=== PATIENT | male | born 1935 | race African-American/Black ===

== ENCOUNTER 2016-06-22 21:37 | Inpatient (IN) | payer MEDICARE ==
[2016-06-19 13:06] LABS: BASOPHILS 0.3 %; BASOPHILS ABSOLUTE 0.02 10/3/uL (0.0-0.16); EOSINOPHILS 4.7 %; EOSINOPHILS ABSOLUTE 0.29 10/3/uL (0.0-0.53); HEMOGLOBIN 12.2 g/dL (13.6-17.8); IMMATURE GRANULOCYTES 0.2 %; IMMATURE GRANULOCYTES ABSOLUTE 0.01 10/3/uL (0.0-0.11); LYMPHOCYTES 22.8 %; LYMPHOCYTES ABSOLUTE 1.41 10/3/uL (0.67-4.30); MEAN CORPUS HGB CONC 34.3 g/dL (32.0-36.0); MEAN CORPUSCULAR HEMOGLOB 31.9 pg (26.0-34.0); MEAN PLATELET VOLUME 11.4 fL (9.2-13.0); MONOCYTES 10.7 %; MONOCYTES ABSOLUTE 0.66 10/3/uL (0.21-1.20); NEUTROPHILS 61.3 %; PLATELET COUNT 134 10/3/uL (150-400); RBC DISTRIBUTION WIDTH 14.9 % (12.0-16.0); RED CELL COUNT 3.83 10/6/uL (4.7-6.1); WHITE BLOOD CELLS 6.2 10/3/uL (4.5-10.5)
[2016-06-19 13:07] LABS: HEMATOCRIT 35.6 % (40.0-51.0); MANUAL DIFF NO %
[2016-06-19 22:06] LABS: ASCORBIC ACID (UR NOT ORDER) NEG (NEG); BILIRUBIN, URINE NEGATIVE (NEG); KETONE, URINE NEGATIVE (NEG)
--- NOTE | ~2016-06-22 | HP ---
History And Physical [address] [place]. [address] NAME: MARILU HERNÁNDEZ JR : 37 STATUS : ADM IN [facility]#: [id number] AGE: 81 ADM/REG DATE : 06/23/16 MR#: [id number] REPORT SERV DATE: 06/25/16 DICTATED BY: NICHOLAS CALLAWAY DATE: 06/25/16 REPORT STATUS : Draft TRANSCRIBED BY: MODL DATE: 06/25/16 DATE OF ADMISSION: 06/23/2016 CHIEF COMPLAINT: Decreased responsiveness, nausea, and vomiting. HISTORY OF PRESENT ILLNESS: This is an 81-year-old male, who is a [employer] participant with a history of prior stroke with aphasia, dysphagia, and gait abnormality. The patient also has hypertension and benign prostatic hypertrophy. He was admitted to the hospital with complaints of nausea, vomiting, decreased p.o. intake, and decreased responsiveness. The patient was seen at the [facility] (in [facility]) by me on 06/18/2016, where he was noted to be not as alert as usual. He was still eating and drinking and interacting and grunting, like he usually does, at that time. Chest x-ray, urine, CBC, CMP were ordered, and he was started on Rocephin as nurses had also reported hematuria and turbid urine the day before. Subsequently, over the weekend, he developed decreased p.o. intake, nausea, and vomiting, and on 06/22/2016 had decreased responsiveness and was brought to the emergency room. He was found to be dehydrated in the ER, and urine was suggestive of infection. He was admitted for further management. Last night, the patient's T-max (maximum temperature) was 99.9 degree Fahrenheit. REVIEW OF SYSTEMS: Detailed review of systems could not be obtained as the patient was lethargic and not responding much to questions. Family was not available, but per [facility] nurse, review of systems was negative, except as mentioned above. PAST MEDICAL HISTORY: Includes: 1. Prior stroke with aphasia and weakness and some dysphagia. 2. Hypertension. 3. Diabetes mellitus, not on medications. 4. Stage 3 chronic kidney disease. 5. GERD. 6. Constipation. 7. Osteoarthritis. 8. History of Schatzki ring, which has been dilated in the past. 9. Esophagitis in the past. 10.Benign prostatic hypertrophy. 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 FAMILY HISTORY: Noncontributory at this time. SOCIAL HISTORY: Patient is currently a resident of [facility] on [address]. No alcohol or tobacco use at this time. No illicit drug use. However, the patient was a smoker in the past. ALLERGIES: LUZ INHIBITORS. History And Physical [address] [address] NAME: MARILU HERNÁNDEZ : 37 STATUS : ADM IN [facility]#: [id number] AGE: 81 ADM/REG DATE : 06/23/16 MR#: [id number] REPORT SERV DATE: 06/25/16 DICTATED BY: NICHOLAS CALLAWAY DATE: 06/25/16 REPORT STATUS : Draft TRANSCRIBED BY: KADY DATE: 06/25/16 MEDICATIONS: Include Protonix 40 mg daily, aspirin, Lipitor, Colace, p.r.n. Dulcolax, DuoNeb p.r.n., hydrochlorothiazide, milk of mag p.r.n., multivitamins, tramadol p.r.n., vitamin D, and Zofran. PHYSICAL EXAMINATION: VITAL SIGNS: Temperature 99.3, pulse 81, respirations 18, and blood pressure 113/62. GENERAL: The patient is lethargic, sleeping in bed; however, he does open his eyes and look around in response to tactile stimuli, not alert enough to eat at this point. NECK: No jugular venous distention. CHEST: No tenderness to palpation. CARDIAC: Regular rhythm. LUNGS: Exam was restricted as he is not taking deep breaths. However, I do not hear any crackles or wheezing. ABDOMEN: Soft, nontender, and nondistended. Active bowel sounds are present. EXTREMITIES: No edema noted. SKIN: Healthy. NEUROLOGIC: Detailed neurologic exam could not be performed as he was not very alert; however, the patient was moving all four extremities and withdrawing in response to noxious stimuli. LABORATORY DATA: Sodium 152, potassium 3.6, chloride 114, BUN 33, creatinine 1.67, glucose 103, calcium 9.3. WBC 12.7, hemoglobin 12.7, hematocrit 37.4, platelets 138. Chest x-ray reveals mild left basilar atelectasis. Urinalysis reveals large nitrite, moderate leukocyte esterase, 13 rbc's, [address] scan of abdomen and pelvis reveals a left benign renal cyst, 3 cm in size, and left nonobstructing nephrolithiasis. IMPRESSION: 1. Altered mental status/urinary tract infection, likely secondary to infection. Urinalysis is suggestive of urinary tract infection. I called the lab because to find out the result of the urine sent on 06/19/2016 from the [facility]. The lab reports that it is growing gram-negative bacilli, but they are growing very slowly and they suspect it is a fastidious organism. Sample has been sent out to [facility] in [place] to identify the organism. They report that the results will likely be available in about seven days from now. In view of the maximum temperature being 99.9 last night and the patient having been on Rocephin since 06/18/2016, I will electronic data interchange specialist antibiotics to Zosyn and vancomycin for broader coverage. We will also check procalcitonin in the a.m. 2. Hypertension. Blood pressure is on the lower side right now. We will hold his hydrochlorothiazide. 3. Dehydration and hypernatremia. The patient is currently on IV fluids. We will change him over to half-normal saline at 75 mL an hour. Check a BMP, and encourage p.o. fluid intake once he is more alert. Currently, he is n.p.o. History And Physical [address] [address] NAME: MARILU HERNÁNDEZ Radu PATTEN : 37 STATUS : ADM IN [facility]#: [id number] AGE: 81 ADM/REG DATE : 06/23/16 MR#: [id number] REPORT SERV DATE: 06/25/16 DICTATED BY: NICHOLAS CALLAWAY DATE: 06/25/16 REPORT STATUS : Draft TRANSCRIBED BY: MODL DATE: 06/25/16 4. Vascular dementia. Present at baseline. Continue to monitor. He has family in the room and the daughter is planning to stay with him at night to make sure he does not get confused. 5. Nausea and vomiting secondary to urinary tract infection versus secondary to Schatzki ring. He is currently not alert enough to eat. Once he is more alert, we will start him on a diet and see how he does. He has not had any episodes of vomiting since he has been in the hospital. We will continue to monitor. 6. Code status is [id number], limited additional interventions. ANA LUISA/KADY Nicholas Callaway M.D. / [id number] CC: Nicholas Callaway M.D.
--- NOTE | ~2016-06-22 | DS ---
Discharge Summary [facility] [address] [place]. [address] NAME: MARILU HERNÁNDEZ JR : 37 STATUS : DIS IN PAT#: [id number] AGE: 81 ADM/REG DATE : 06/23/16 MR#: [id number] REPORT SERV DATE: 07/04/16 DICTATED BY: NICHOLAS CALLAWAY DATE: 07/03/16 REPORT STATUS : Draft TRANSCRIBED BY: KADY DATE: 07/03/16 Data Collection from hospitalization DISCHARGE DIAGNOSES: 1. Altered mental status. 2. Urinary tract infection. 3. Hypertension. 4. Hypernatremia. CONSULTATIONS: None. PROCEDURES PERFORMED: CT of the abdomen and pelvis without contrast on 06/22/2016. MEDICATIONS: Aspirin 325 mg every morning, Lipitor 40 mg at bedtime, vitamin D3 2000 units daily, Colace 100 mg at bedtime, Theragran tablet without minerals one daily, Protonix 40 mg every morning, Ceftin 250 mg twice daily x5 days through 06/28/2016, MiraLAX powder 17 mg daily as needed, Dulcolax 10 mg rectally daily as needed, Robitussin 10 mL every four hours as needed, milk of magnesia 30 mL daily as needed, Zofran 4 mg every eight hours as needed, Ultram 50 mg every 8 hours as needed, DuoNeb one nebulizer INH four times daily as needed, and tramadol 25 mg at bedtime. CONDITION AT DISCHARGE: Upon discharge, he did appear to be doing well and had no complaints. DISPOSITION: He had been discharged with transfer to [facility] to continue a pureed texture, thickened, high-calorie, high-protein diet. He was to have activity as discussed and was to continue with physical therapy and occupational therapy. HOSPITAL COURSE: This 81-year-old male was a [facility] participant with a history of prior stroke with aphasia, dysphagia, and gait abnormality. He had also had hypertension and benign prostatic hypertrophy. He was admitted with complaints of nausea, vomiting, decreased oral intake, and decreased responsiveness. [facility] was seen at [facility] by me on 06/18/2016 where he was noted to be not as alert as usual. He was still eating and drinking and interacting and grunting like he usually does at that time. Chest x-ray, urine, CBC, and CMP were ordered, and he was begun on Rocephin as nurses had also reported hematuria and turbid urine the day before. Subsequently, over the weekend, he developed decreased oral intake, nausea, and vomiting, and on 06/22/2016, he had decreased responsiveness and was brought to the emergency room. He was found to be dehydrated in the emergency room and urine was suggestive of infection. He was admitted for further management. His temp max was 99.9 degrees Fahrenheit. Upon admission to the hospital, he had been placed on an n.p.o. diet. He was begun on oxygen per protocol. He had been placed on IV fluids with normal saline at 125 mL/h, Rocephin 1 g IV daily, Zofran 4 mg IV every six hours as needed, as well as electrolyte replacement protocol. He did undergo the above CT of the abdomen and pelvis without contrast while in the emergency room. Following the day of admission, he was afebrile and his vital signs were stable. He did appear to be doing well, however, he was noted to have a decreased oral intake. He was felt to be doing better and was more alert. His urine culture from the day of admission had revealed no growth. His urine culture from 06/19/2016 revealed gram-negative rods, which had not been identified Discharge Summary [address] [place]. [address] NAME: BETTYMARILU Radu PATTEN : 37 STATUS : DIS [facility]#: [id number] AGE: 81 ADM/REG DATE : 06/23/16 MR#: [id number] REPORT SERV DATE: 07/04/16 DICTATED BY: NICHOLAS CALLAWAY DATE: 07/03/16 REPORT STATUS : Draft TRANSCRIBED BY: KADY DATE: 07/03/16 as of yet. On 06/25/2016, he had remained afebrile and had no new complaints noted. He was felt to be doing somewhat better and it was noted that he had eaten 50% of his breakfast, however, he did not eat much lunch. His last bowel movement was noted to have been on 06/22/2016. He was continued on supportive care. He was noted to be hypernatremic and a change in his IV fluids was made. He was continued on Zosyn and vancomycin. He did remain in stable condition and did continue to slowly improve. As he continued to do well, discharge planning was begun. He was then discharged on 06/27/2016 with the above instructions. Information collected by: Manuel Winchester. I submit the above information as my discharge summary. DARIO/KADY Nicholas Callaway M.D. / [id number] CC: Nicholas Callaway M.D. [facility]
[2016-06-22 14:27] LABS: BASOPHILS 0.1 %; BASOPHILS ABSOLUTE 0.01 10/3/uL (0.0-0.16); EOSINOPHILS 0.6 %; EOSINOPHILS ABSOLUTE 0.09 10/3/uL (0.0-0.53); HEMATOCRIT 36.5 % (40.0-51.0); HEMOGLOBIN 12.5 g/dL (13.6-17.8); IMMATURE GRANULOCYTES 0.3 %; IMMATURE GRANULOCYTES ABSOLUTE 0.04 10/3/uL (0.0-0.11); LYMPHOCYTES 11.5 %; LYMPHOCYTES ABSOLUTE 1.73 10/3/uL (0.67-4.30); MEAN CORPUS HGB CONC 34.2 g/dL (32.0-36.0); MEAN CORPUSCULAR HEMOGLOB 32.1 pg (26.0-34.0); MEAN CORPUSCULAR VOLUME 93.6 fL (80-100); MEAN PLATELET VOLUME 11.1 fL (9.2-13.0); MONOCYTES 5.9 %; MONOCYTES ABSOLUTE 0.89 10/3/uL (0.21-1.20); NEUTROPHILS 81.6 %; NEUTROPHILS ABSOLUTE 12.24 10/3/uL (2.02-8.40); PLATELET COUNT 137 10/3/uL (150-400); RBC DISTRIBUTION WIDTH 14.9 % (12.0-16.0)
[2016-06-22 14:31] LABS: MANUAL DIFF NO %
[~2016-06-22 21:37] MED LIST: ASA5GR PO; DSS PO; DUONEB INH; HYDROCHLOROT25 MG PO; LIPITOR40 PO; MIRALAXPKT PO; ULTRAM50 PO; VITAMIN D1000 UNI1 PO; VITAMIN D2000 UNIT PO; ZANTAC150 MG PO; ZESTORETIC PO
[2016-06-22 22:29] LABS: BASOPHILS 0.1 %; BASOPHILS ABSOLUTE 0.01 10/3/uL (0.0-0.16); EOSINOPHILS 1.4 %; EOSINOPHILS ABSOLUTE 0.18 10/3/uL (0.0-0.53); ER CBC TAT 0 Hrs 08 Mins; HEMATOCRIT 37.4 % (40.0-51.0); HEMOGLOBIN 12.7 g/dL (13.6-17.8); IMMATURE GRANULOCYTES 0.2 %; IMMATURE GRANULOCYTES ABSOLUTE 0.03 10/3/uL (0.0-0.11); LYMPHOCYTES 12.2 %; LYMPHOCYTES ABSOLUTE 1.55 10/3/uL (0.67-4.30); MANUAL DIFF NO %; MEAN CORPUSCULAR HEMOGLOB 31.8 pg (26.0-34.0); MEAN CORPUSCULAR VOLUME 93.5 fL (80-100); MEAN PLATELET VOLUME 10.9 fL (9.2-13.0); MONOCYTES 5.3 %; MONOCYTES ABSOLUTE 0.68 10/3/uL (0.21-1.20); NEUTROPHILS 80.8 %; NEUTROPHILS ABSOLUTE 10.28 10/3/uL (2.02-8.40); PLATELET COUNT 138 10/3/uL (150-400); RBC DISTRIBUTION WIDTH 14.9 % (12.0-16.0); WHITE BLOOD CELLS 12.7 10/3/uL (4.5-10.5)
[2016-06-22 22:33] LABS: ASCORBIC ACID (UR NOT ORDER) NEG (NEG); BILIRUBIN, URINE NEGATIVE (NEG); ER URINALYSIS TAT 0 Hrs 12 Mins; KETONE, URINE NEGATIVE (NEG); LEUKOCYTE ESTERASE(NOT OR MOD (NEG); NITRITE (URINE) NEG (NEG); WBC (NOT ORDERED) (RFLEX) 21 (0-5)
[2016-06-22 22:45] LABS: A/G RATIO 0.7 (0.7-1.9); ALBUMIN 2.9 G/DL (3.5-5.0); ALKALINE PHOSPHATASE 68 U/L (45-117); BUN (BLOOD UREA NITROGEN) 33 MG/DL (6-23); CALCIUM, SERUM 9.3 MG/DL (8.5-10.4); CHLORIDE, SERUM 114 MMOL/L (96-112); CO2 (CARBON DIOXIDE) 32 MMOL/L (24-34); CREATININE 1.67 MG/DL (0.70-1.30); GFR AFRICAN AMERICAN 44 ML/MIN (>=60); GFR NON AFRICAN AMERICAN 38 ML/MIN (>=60); GLOBULIN 4.3 G/DL (2.5-4.1); GLUCOSE, SERUM 103 MG/DL (60-99); POTASSIUM, SERUM 3.6 MMOL/L (3.5-5.3); SGOT(AST) 24 U/L (5-40); SGPT(ALT) 23 U/L (5-65); SODIUM, SERUM 152 MMOL/L (135-148); TOTAL PROTEIN 7.2 G/DL (6.0-8.5)
[2016-06-22] MEDS ORDERED: LIPITOR40 PO (23:54)
[2016-06-22] MEDS ORDERED: COLACEUDL PO (23:54)
[2016-06-22] MEDS ORDERED: DUONEB INH (23:55)
[2016-06-22] MEDS ORDERED: GGEXPUD PO (23:55)
[2016-06-22] MEDS ORDERED: MOMUD PO (23:56)
[2016-06-22] MEDS ORDERED: MIRALAX POWDER1 PKT PO (23:56)
[2016-06-22] MEDS ORDERED: ULTRAM50 PO (23:56)
[2016-06-22] MEDS ORDERED: ZANTAC 150 PO (23:56)
[2016-06-22] MEDS ORDERED: BISR PR (23:57)
[2016-06-22] MEDS ORDERED: VITAMIN D31000 UNIT PO (23:57)
[2016-06-22] MEDS ORDERED: MULTIVIT/MIN PO (23:58)
[2016-06-22] MEDS ORDERED: ASABAYER PO (23:58)
[2016-06-22] MEDS ORDERED: PROTONIX PO (23:59)
[2016-06-22] MEDS ORDERED: ZOFRAN4 PO (23:59)
[2016-06-22] MEDS ORDERED: CEFT2 PO (23:59)
[2016-06-23] MEDS ORDERED: HYDROCHLOROT25 MG PO
[2016-06-24 06:07] LABS: BASOPHILS 0.1 %; BASOPHILS ABSOLUTE 0.01 10/3/uL (0.0-0.16); EOSINOPHILS 1.9 %; EOSINOPHILS ABSOLUTE 0.15 10/3/uL (0.0-0.53); HEMOGLOBIN 10.9 g/dL (13.6-17.8); IMMATURE GRANULOCYTES 0.2 %; IMMATURE GRANULOCYTES ABSOLUTE 0.02 10/3/uL (0.0-0.11); LYMPHOCYTES 16.2 %; MEAN CORPUS HGB CONC 33.5 g/dL (32.0-36.0); MEAN CORPUSCULAR HEMOGLOB 32.1 pg (26.0-34.0); MEAN CORPUSCULAR VOLUME 95.6 fL (80-100); MEAN PLATELET VOLUME 10.5 fL (9.2-13.0); MONOCYTES 7.1 %; MONOCYTES ABSOLUTE 0.57 10/3/uL (0.21-1.20); NEUTROPHILS 74.5 %; NEUTROPHILS ABSOLUTE 5.97 10/3/uL (2.02-8.40); PLATELET COUNT 120 10/3/uL (150-400)
[2016-06-24 06:08] LABS: HEMATOCRIT 32.5 % (40.0-51.0); MANUAL DIFF NO %
[2016-06-24 06:18] LABS: CALCIUM, SERUM 8.5 MG/DL (8.5-10.4); CHLORIDE, SERUM 117 MMOL/L (96-112); CREATININE 1.44 MG/DL (0.70-1.30); GFR AFRICAN AMERICAN 53 ML/MIN (>=60); GFR NON AFRICAN AMERICAN 46 ML/MIN (>=60); POTASSIUM, SERUM 3.4 MMOL/L (3.5-5.3); SODIUM, SERUM 151 MMOL/L (135-148)
[2016-06-24 06:19] LABS: BUN (BLOOD UREA NITROGEN) 29 MG/DL (6-23); CO2 (CARBON DIOXIDE) 25 MMOL/L (24-34)
[2016-06-24 06:20] LABS: GLUCOSE, SERUM 67 MG/DL (60-99)
[2016-06-24 06:57] LABS: PROCALCITONIN 0.51 ng/mL (<0.5)
[2016-06-25 06:11] LABS: BASOPHILS 0.3 %; BASOPHILS ABSOLUTE 0.02 10/3/uL (0.0-0.16); EOSINOPHILS 2.4 %; EOSINOPHILS ABSOLUTE 0.17 10/3/uL (0.0-0.53); HEMATOCRIT 33.1 % (40.0-51.0); HEMOGLOBIN 11.2 g/dL (13.6-17.8); IMMATURE GRANULOCYTES 0.1 %; IMMATURE GRANULOCYTES ABSOLUTE 0.01 10/3/uL (0.0-0.11); LYMPHOCYTES 21.6 %; LYMPHOCYTES ABSOLUTE 1.52 10/3/uL (0.67-4.30); MEAN CORPUS HGB CONC 33.8 g/dL (32.0-36.0); MEAN CORPUSCULAR HEMOGLOB 31.6 pg (26.0-34.0); MEAN CORPUSCULAR VOLUME 93.5 fL (80-100); MEAN PLATELET VOLUME 10.8 fL (9.2-13.0); MONOCYTES 8.7 %; MONOCYTES ABSOLUTE 0.61 10/3/uL (0.21-1.20); NEUTROPHILS 66.9 %; NEUTROPHILS ABSOLUTE 4.71 10/3/uL (2.02-8.40); PLATELET COUNT 127 10/3/uL (150-400); RBC DISTRIBUTION WIDTH 14.6 % (12.0-16.0); RED CELL COUNT 3.54 10/6/uL (4.7-6.1)
[2016-06-25 06:16] LABS: MANUAL DIFF NO %
[2016-06-25 06:27] LABS: CALCIUM, SERUM 8.4 MG/DL (8.5-10.4); CHLORIDE, SERUM 118 MMOL/L (96-112); CO2 (CARBON DIOXIDE) 23 MMOL/L (24-34); CREATININE 1.46 MG/DL (0.70-1.30); GFR AFRICAN AMERICAN 52 ML/MIN (>=60); GFR NON AFRICAN AMERICAN 45 ML/MIN (>=60); SODIUM, SERUM 152 MMOL/L (135-148)
[2016-06-25 06:29] LABS: BUN (BLOOD UREA NITROGEN) 23 MG/DL (6-23); GLUCOSE, SERUM 149 MG/DL (60-99); POTASSIUM, SERUM 3.9 MMOL/L (3.5-5.3)
[2016-06-26 06:42] LABS: BASOPHILS 0.2 %; BASOPHILS ABSOLUTE 0.02 10/3/uL (0.0-0.16); EOSINOPHILS 3.4 %; EOSINOPHILS ABSOLUTE 0.27 10/3/uL (0.0-0.53); HEMATOCRIT 32.1 % (40.0-51.0); HEMOGLOBIN 11.1 g/dL (13.6-17.8); IMMATURE GRANULOCYTES 0.1 %; IMMATURE GRANULOCYTES ABSOLUTE 0.01 10/3/uL (0.0-0.11); LYMPHOCYTES 14.7 %; LYMPHOCYTES ABSOLUTE 1.18 10/3/uL (0.67-4.30); MEAN CORPUS HGB CONC 34.6 g/dL (32.0-36.0); MEAN CORPUSCULAR HEMOGLOB 32.3 pg (26.0-34.0); MEAN CORPUSCULAR VOLUME 93.3 fL (80-100); MEAN PLATELET VOLUME 10.3 fL (9.2-13.0); MONOCYTES 8.7 %; NEUTROPHILS 72.9 %; NEUTROPHILS ABSOLUTE 5.83 10/3/uL (2.02-8.40); PLATELET COUNT 123 10/3/uL (150-400); RBC DISTRIBUTION WIDTH 14.5 % (12.0-16.0); RED CELL COUNT 3.44 10/6/uL (4.7-6.1)
[2016-06-26 06:46] LABS: MANUAL DIFF NO %
[2016-06-26 06:54] LABS: CALCIUM, SERUM 8.8 MG/DL (8.5-10.4); CHLORIDE, SERUM 115 MMOL/L (96-112); CO2 (CARBON DIOXIDE) 26 MMOL/L (24-34); CREATININE 1.28 MG/DL (0.70-1.30); GFR AFRICAN AMERICAN 61 ML/MIN (>=60); GFR NON AFRICAN AMERICAN 53 ML/MIN (>=60); GLUCOSE, SERUM 128 MG/DL (60-99); POTASSIUM, SERUM 3.6 MMOL/L (3.5-5.3); SODIUM, SERUM 149 MMOL/L (135-148)
[2016-06-26 06:55] LABS: BUN (BLOOD UREA NITROGEN) 16 MG/DL (6-23)
[2016-06-27 05:11] LABS: BASOPHILS 0.2 %; BASOPHILS ABSOLUTE 0.01 10/3/uL (0.0-0.16); BUN (BLOOD UREA NITROGEN) 15 MG/DL (6-23); CALCIUM, SERUM 8.1 MG/DL (8.5-10.4); CHLORIDE, SERUM 115 MMOL/L (96-112); CO2 (CARBON DIOXIDE) 27 MMOL/L (24-34); CREATININE 1.27 MG/DL (0.70-1.30); EOSINOPHILS 5.1 %; EOSINOPHILS ABSOLUTE 0.33 10/3/uL (0.0-0.53); GFR AFRICAN AMERICAN 61 ML/MIN (>=60); GFR NON AFRICAN AMERICAN 53 ML/MIN (>=60); HEMATOCRIT 29.1 % (40.0-51.0); HEMOGLOBIN 10.1 g/dL (13.6-17.8); IMMATURE GRANULOCYTES 0.3 %; IMMATURE GRANULOCYTES ABSOLUTE 0.02 10/3/uL (0.0-0.11); LYMPHOCYTES 18.1 %; LYMPHOCYTES ABSOLUTE 1.16 10/3/uL (0.67-4.30); MEAN CORPUS HGB CONC 34.7 g/dL (32.0-36.0); MEAN CORPUSCULAR HEMOGLOB 32.6 pg (26.0-34.0); MEAN CORPUSCULAR VOLUME 93.9 fL (80-100); MEAN PLATELET VOLUME 10.7 fL (9.2-13.0); MONOCYTES 5.5 %; MONOCYTES ABSOLUTE 0.35 10/3/uL (0.21-1.20); NEUTROPHILS 70.8 %; NEUTROPHILS ABSOLUTE 4.54 10/3/uL (2.02-8.40); PLATELET COUNT 117 10/3/uL (150-400); POTASSIUM, SERUM 3.9 MMOL/L (3.5-5.3); RBC DISTRIBUTION WIDTH 14.7 % (12.0-16.0); SODIUM, SERUM 148 MMOL/L (135-148); WHITE BLOOD CELLS 6.4 10/3/uL (4.5-10.5)
[2016-06-27 05:12] LABS: GLUCOSE, SERUM 211 MG/DL (60-99)
[2016-06-27 05:20] LABS: MANUAL DIFF NO %
== END 2016-06-27 18:16 | DRG 689 ==
LOC: ER 21:37 → 1SO 23:59
PROVIDERS: Internal Medicine Geriatric Medicine; Nurse Practitioner Acute Care
DX: N39.0 Urinary tract infection, site not specified (principal); G92 Toxic encephalopathy; E87.0 Hyperosmolality and hypernatremia; E11.22 Type 2 diabetes mellitus with diabetic chronic kidney disease; E86.0 Dehydration; R13.10 Dysphagia, unspecified; F01.50 Vascular dementia, unspecified severity, without behavioral disturbance, psychotic disturbance, mood disturbance, and anxiety; N18.3 Chronic kidney disease, stage 3 (moderate); I69.391 Dysphagia following cerebral infarction; I69.320 Aphasia following cerebral infarction; N40.0 Benign prostatic hyperplasia without lower urinary tract symptoms; K59.00 Constipation, unspecified; I12.9 Hypertensive chronic kidney disease with stage 1 through stage 4 chronic kidney disease, or unspecified chronic kidney disease; K21.9 Gastro-esophageal reflux disease without esophagitis; Z66 Do not resuscitate; I25.2 Old myocardial infarction; Z87.891 Personal history of nicotine dependence; Z79.82 Long term (current) use of aspirin; Z79.899 Other long term (current) drug therapy; Z88.8 Allergy status to other drugs, medicaments and biological substances
CPT/HCPCS: 71010; 74176; 80048; 80053; 80202; 81001; 82962; 83605; 83690; 84145; 85025; 87040; 87086; 87186; 94640; 96374; 99285; A9270-GY; J2405; J2543; J3370